=== PATIENT | female | born 1940 | race Caucasian/White ===

== ENCOUNTER 2017-04-04 13:29 | Outpatient (CLI) | payer MEDICARE, OTHER ==
[2015-09-07 13:03] VITALS: BP 139/95
== END 2017-04-04 13:30 ==
LOC: CARD 13:29
PROVIDERS: ATTEND Internal Medicine Cardiovascular Disease
DX: I48.91 Unspecified atrial fibrillation (principal); I10 Essential (primary) hypertension
CPT/HCPCS: G0463